=== PATIENT | male | born 1960 | race Caucasian/White ===

== ENCOUNTER 2021-05-25 14:58 | Emergency (ER) | payer BC ==
[~2021-05-25] VITALS: Ht 177.8 cm; Wt 83.0 kg
[2021-05-25] MEDS ORDERED: LISINOPRIL20 MG PO (17:36)
[2021-05-25] MEDS ORDERED: IBUPROFEN800 MG PO (17:36)
== END 2021-05-25 21:24 | disposition home or self-care (01) ==
LOC: ED 14:58
DX: U07.1 COVID-19 (principal); I10 Essential (primary) hypertension; Z79.899 Other long term (current) drug therapy
CPT/HCPCS: 71045; 99283-25; C9803; M0243; Q0244; U0003